=== PATIENT | female | born 1995 | race African-American/Black ===

== ENCOUNTER 2023-03-18 17:40 | Emergency (ER) | payer MEDICAID, SELFPAY ==
[2023-03-18 18:50] LABS: SARS-CoV-2 NAA Rapid Test Not Detected (NotDetected)
[2023-03-18] MEDS ORDERED: Acetaminophen 500 MG TAB ONE (19:08)
[2023-03-18] MEDS ORDERED: Ibuprofen 200 MG TAB ONE (19:08)
== END 2023-03-18 19:18 | disposition home or self-care (01) ==
LOC: ERS 17:40
DX: J02.9 Acute pharyngitis, unspecified (principal); Z20.822 Contact with and (suspected) exposure to COVID-19
CPT/HCPCS: 87081; 87430; 99283

== ENCOUNTER 2023-04-06 11:17 | Emergency (ER) | payer SELFPAY ==
[2023-04-06] MEDS ORDERED: Ondansetron ODT 4 MG TAB ONE (14:06)
[2023-04-06] MEDS ORDERED: Acetaminophen 500 MG TAB ONE (14:15)
[2023-04-06 14:25] LABS: SARS-CoV-2 NAA Rapid Test Not Detected (NotDetected)
[2023-04-06] MEDS ORDERED: Dexameth. Sod Phosp. 10 MG/ML (CHEMO USE ONLY) ONE (15:06)
== END 2023-04-06 15:12 | disposition home or self-care (01) ==
LOC: ERS 11:17
DX: J02.9 Acute pharyngitis, unspecified (principal); Z20.822 Contact with and (suspected) exposure to COVID-19
CPT/HCPCS: 87081; 87430; 99283; J1100; Q0162